=== PATIENT | male | born 1990 | race African-American/Black ===

== ENCOUNTER 2021-07-18 08:36 | Emergency (ER) | payer BC ==
[~2021-07-18] VITALS: Ht 177.8 cm; Wt 93.4 kg
--- NOTE | 2021-07-18 08:36 | NUR ---
RONY CHAN CHP TO CHAIR Aamir
[2021-07-18 08:44] VITALS: BP 150/89
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
== END 2021-07-18 10:40 | disposition home or self-care (01) ==
LOC: MED 08:36
DX: Z02.89 Encounter for other administrative examinations (principal); V89.2XXA Person injured in unspecified motor-vehicle accident, traffic, initial encounter; Y93.89 Activity, other specified; Y92.89 Other specified places as the place of occurrence of the external cause; Y99.8 Other external cause status
CPT/HCPCS: 70450; 72125; 99284